=== PATIENT | female | born 2000 | race Caucasian/White ===

== ENCOUNTER 2023-06-08 10:53 | Emergency (ER) | payer BC ==
[~2023-06-08] VITALS: Ht 162.6 cm; Wt 63.5 kg
[2023-06-08 10:58] VITALS: BP 119/80; PULSE 94; RESP 20; TEMP 98; O2SAT 98
[2023-06-08 13:11] VITALS: BP 119/80; PULSE 94; RESP 20; TEMP 98; O2SAT 98
[2023-06-08 14:21] LABS: FLU A ANTIGEN negative (NEGATIVE); FLU B ANTIGEN negative (NEGATIVE)
== END 2023-06-08 13:13 | disposition home or self-care (01) ==
LOC: MED 10:53
DX: B34.9 Viral infection, unspecified (principal); Z20.822 Contact with and (suspected) exposure to COVID-19; Z79.899 Other long term (current) drug therapy
CPT/HCPCS: 99283